=== PATIENT | female | born 1960 | race African-American/Black ===

== ENCOUNTER 2019-11-01 14:58 | Emergency (ER) | payer BC ==
[2019-11-01] MEDS ORDERED: LISINOPRIL 10 MG TABLET PO ONE (17:03)
[2019-11-01] MEDS ORDERED: HYDROCHLOROTHIAZIDE 12.5 MG TABLET PO ONE (17:04)
[2019-11-01] MEDS ORDERED: NIFEDIPINE 30 MG TAB.ER.24 PO ONE (17:05)
--- NOTE | 2019-11-01 17:05 | ER Document Report ---
ED Blood Pressure Problem - General Chief Complaint: hypertension Stated Complaint: BLOOD PRESSURE CONCERNS Time Seen by Provider: 11/01/19 16:58 Primary Care Provider: [facility] [Provider Group] - Follow up as needed MARIE LAYNE MD [ACTIVE STAFF] - Follow up as needed STEPHANIE BRITTON MD [ACTIVE STAFF] - Follow up as needed ALONDRA PARTIDA MD [ACTIVE STAFF] - Follow up as needed Mode of Arrival: Ambulatory Information source: Patient Notes: Patient states she was to have an outpatient procedure for evaluation of uterine fibroids but whenever she presented her blood pressure was up. Patient states she does have hypertension and was started on Procardia although she did not take it today. Patient states that she only just recently got started on the medication over the past week and has not been taking it daily. Patient states that she has had some blurred vision but she does not have her glasses with her here today. Patient denies any headache, chest pain shortness of breath or urinary symptoms. 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 - HPI Patient complains to provider of: High blood pressure Onset: This afternoon Onset/Duration: Persistent Quality of pain: No pain Problem is: Chronic problem Associated symptoms: Visual changes - Possible, patient states that she does wear glasses and does not have them with her. denies: Lightheaded, Nausea Similar symptoms previously: No Recently seen / treated by doctor: Yes - Related Data Allergies/Adverse Reactions: No Known Allergies Allergy (Unverified 11/01/19 16:44) Past Medical History - General Information source: Patient - Social History Smoking Status: Never Smoker Chew tobacco use (# tins/day): No Frequency of alcohol use: None Drug Abuse: None Occupation: [employer] Lives with: Family Family History: Reviewed & Not Pertinent Patient has homicidal ideation: No - Past Medical History Cardiac Medical History: Reports: Hx Hypertension Renal/ Medical History: Reports: Other - Uterine fibroids Past Surgical History: Reports: Hx Orthopedic Surgery - left ankle surgery Review of Systems - Review of Systems Constitutional: No symptoms reported EENT: Blurred vision - May be due to not wearing her glasses per patient Cardiovascular: No symptoms reported. denies: Chest pain Respiratory: No symptoms reported. denies: Cough Gastrointestinal: No symptoms reported. denies: Abdominal pain, Vomiting Genitourinary: No symptoms reported Female Genitourinary: No symptoms reported Musculoskeletal: No symptoms reported. denies: Back pain Skin: No symptoms reported Hematologic/Lymphatic: No symptoms reported Neurological/Psychological: No symptoms reported. denies: Headaches Physical Exam - Vital signs Vitals: Temp Pulse Resp BP Pulse Ox 98.0 F 78 16 184/109 H 100 11/01/19 15:18 11/01/19 15:18 11/01/19 15:18 11/01/19 15:18 11/01/19 15:18 - General General appearance: Appears well, Alert In distress: None - HEENT Head: Normocephalic, Atraumatic Eyes: Normal Conjunctiva: Normal Extraocular movements intact: Yes Pupils: PERRL Fundascopic: Normal. No: Retinal detachment, Retinal hemorrhage Nasal: Normal Mouth/Lips: Normal Pharynx: Normal Neck: Normal - Respiratory Respiratory status: No respiratory distress Chest status: Nontender Breath sounds: Normal. No: Rales, Rhonchi, Stridor, Wheezing Chest palpation: Normal - Cardiovascular Rhythm: Regular Heart sounds: S1 appreciated, S2 appreciated - Abdominal Inspection: Normal - Back Back: Normal, Nontender - Extremities General upper extremity: Normal inspection, Normal ROM General lower extremity: Normal inspection, Normal ROM - Neurological Neuro grossly intact: Yes Cognition: Normal Arvin Coma Scale Eye Opening: Spontaneous Arvin Coma Scale Verbal: Oriented Arvin Coma Scale Motor: Obeys Commands Arvin Coma Scale Total: 15 - Psychological Associated symptoms: Normal affect, Normal mood - Skin Skin Temperature: Warm Skin Moisture: Dry Skin Color: Normal Course - Re-evaluation Re-evalutation: 11/01/19 17:05 Nurse called the pharmacy who feels patient's medication states that she was prescribed Procardia 30 mg XL. Will give patient a dose of her usual medication at this time. 11/01/19 19:00 Reports that vision has returned to normal. Patient denies any headache pain. 11/01/19 19:15 Patient's repeat blood pressure has trended to 168/104. Patient with asymptomatic hypertension at this time. CT reviewed, no cute findings. Patient's diagnostic evaluation otherwise without any acute abnormalities. Will encourage patient to remain compliant with her antihypertensive medication and to follow-up with a primary doctor for further evaluation. - Vital Signs Vital signs: Temp Pulse Resp BP Pulse Ox 98.0 F 67 14 161/86 H 99 11/01/19 19:29 11/01/19 19:29 11/01/19 19:29 11/01/19 19:29 11/01/19 19:29 - Laboratory Result Diagrams: 11/01/19 17:26 11/01/19 17:26 Laboratory results interpreted by me: 11/01/19 17:26 RDW 15.0 H Labs- All tests 24 hr 11/01/19 11/01/19 17:26 17:26 WBC 6.4 RBC 4.57 Hgb 13.3 Hct 39.8 MCV 87 MCH 29.2 MCHC 33.5 RDW 15.0 H Plt Count 296 Lymph % (Auto) 21.0 Morgan % (Auto) 6.5 Eos % (Auto) 1.7 Baso % (Auto) 1.1 Absolute Neuts (auto) 4.5 Absolute Lymphs (auto) 1.4 Absolute Monos (auto) 0.4 Absolute Eos (auto) 0.1 Absolute Basos (auto) 0.1 Seg Neutrophils % 69.7 Sodium 142.0 Potassium 3.9 Chloride 106 Carbon Dioxide 28 Anion Gap 8 BUN 13 Creatinine 0.80 Est GFR ( Amer) > 60 Est GFR (MDRD) Non-Af > 60 Glucose 79 Calcium 9.3 - Diagnostic Test Radiology reviewed: Reports reviewed - EKG Interpretation by Me EKG shows normal: Sinus rhythm Rate: Normal Rhythm: NSR Voltage: Consistent with LVH Additional EKG results interpreted by me: 11/01/19 18:37 Sinus rhythm with a rate of 68, QTc 400, no acute ischemic changes Discharge - Discharge Clinical Impression: Vision disturbance Hypertension Qualifiers: Hypertension type: unspecified Qualified Code(s): I10 - Essential (primary) hypertension Condition: Stable Disposition: HOME, SELF-CARE Instructions: High Blood Pressure, Requiring Treatment ([facility]) Additional Instructions: Return immediately for any new or worsening symptoms Followup with a primary care provider to establish care and manage her hypertension, call tomorrow to make a followup appointment Follow-up with your [facility] provider as directed 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
--- NOTE | 2019-11-01 17:45 | RADIOLOGY REPORT (SQ) ---
EXAM DESCRIPTION: CHEST SINGLE VIEW IMAGES COMPLETED DATE/TIME: 11/01/2019 5:18 pm REASON FOR STUDY: HTN COMPARISON: None. EXAM PARAMETERS: NUMBER OF VIEWS: One view. TECHNIQUE: Single frontal radiographic view of the chest acquired. RADIATION DOSE: NA LIMITATIONS: None. FINDINGS: LUNGS AND PLEURA: No opacities, masses or pneumothorax. No pleural effusion. MEDIASTINUM AND HILAR STRUCTURES: No masses. Contour normal. HEART AND VASCULAR STRUCTURES: Heart normal in size. Normal vasculature. BONES: No acute findings. HARDWARE: None in the chest. OTHER: No other significant finding. IMPRESSION: NO ACUTE RADIOGRAPHIC FINDING IN THE CHEST. TECHNICAL DOCUMENTATION: JOB ID: [id number] 2010 [employer]- All Rights Reserved Reading location - IP/workstation name: [email or web address]
--- NOTE | 2019-11-01 18:07 | RADIOLOGY REPORT (SQ) ---
EXAM DESCRIPTION: CT HEAD WITHOUT IMAGES COMPLETED DATE/TIME: 11/01/2019 5:51 pm REASON FOR STUDY: HTN, blurred vision COMPARISON: None. TECHNIQUE: Axial images acquired through the brain without intravenous contrast. Images reviewed wi th bone, brain and subdural windows. Additional sagittal and coronal reconstructions were generated. Images stored on PACS. All CT scanners at this facility use dose modulation, iterative reconstruction, and/or weight based d osing when appropriate to reduce radiation dose to as low as reasonably achievable (ALARA). [facility]: Dose Right [facility]: CareDose [facility]: Dose Right [facility]: Teradose 4D [facility]: Smart [employer] RADIATION DOSE: CT Rad equipment meets quality standard of care and radiation dose reduction techniq ues were employed. CTDIvol: 53.2 mGy. DLP: 1124 mGy-cm. mGy. LIMITATIONS: None. FINDINGS: VENTRICLES: Normal size and contour. CEREBRUM: No masses. No hemorrhage. No midline shift. No evidence for acute infarction. Normal gra y/white matter differentiation. No areas of low density in the white matter. CEREBELLUM: No masses. No hemorrhage. No alteration of density. No evidence for acute infarction. EXTRAAXIAL SPACES: No fluid collections. No masses. ORBITS AND GLOBE: No intra- or extraconal masses. Normal contour of globe without masses. CALVARIUM: No fracture. PARANASAL SINUSES: No fluid or mucosal thickening. SOFT TISSUES: No mass or hematoma. OTHER: No other significant finding. IMPRESSION: NORMAL BRAIN CT WITHOUT CONTRAST. EVIDENCE OF ACUTE STROKE: NO. COMMENT: Quality ID # [id number]: Final reports with documentation of one or more dose reduction techniques (e.g., Automated exposure control, adjustment of the mA and/or kV according to patient size, use of iterative reconstruction technique) TECHNICAL DOCUMENTATION: JOB ID: [id number] 2010 [employer]- All Rights Reserved Reading location - IP/workstation name: [email or web address]
[2019-11-01 18:13] LABS: ABSOLUTE BASOPHILS # (AUTO) 0.1 10^3/uL (0.0-0.2); ABSOLUTE EOSINOPHILS # (AUTO) 0.1 10^3/uL (0.0-0.6); ABSOLUTE LYMPHOCYTES (AUTO) 1.4 10^3/uL (0.5-4.7); ABSOLUTE MONOCYTES (AUTO) 0.4 10^3/uL (0.1-1.4); ABSOLUTE NEUT (AUTO) 4.5 10^3/uL (1.7-8.2); BASOPHILS % (AUTO) 1.1 % (0-2); EOSINOPHILS % (AUTO) 1.7 % (0-6); HEMATOCRIT 39.8 % (36.0-47.0); HEMOGLOBIN 13.3 g/dL (12.0-15.5); MEAN CORPUSCULAR HEMOGLOBIN 29.2 pg (27.0-33.4); MEAN CORPUSCULAR HGB CONC 33.5 g/dL (32.0-36.0); MEAN CORPUSCULAR VOLUME 87 fl (80-97); MONOCYTES % (AUTO) 6.5 % (3-13); PLATELET COUNT 296 10^3/uL (150-450); RED BLOOD COUNT 4.57 10^6/uL (3.72-5.28); SEGMENTED NEUTROPHILS % (AUTO) 69.7 % (42-78); TOTAL CELLS COUNTED % (AUTO) 100 %; WHITE BLOOD COUNT 6.4 10^3/uL (4.0-10.5)
[2019-11-01 18:48] LABS: ANION GAP 8 (5-19); BLOOD UREA NITROGEN 13 mg/dL (7-20); CALCIUM 9.3 mg/dL (8.4-10.2); CARBON DIOXIDE 28 mmol/L (22-30); CHLORIDE 106 mmol/L (98-107); GLUCOSE 79 mg/dL (75-110); POTASSIUM 3.9 mmol/L (3.6-5.0)
[2019-11-01 19:30] VITALS: BP 161/86
--- NOTE | 2019-11-02 09:38 | EKG REPORT ---
SEVERITY:- BORDERLINE ECG - SINUS RHYTHM LVH BY VOLTAGE : Confirmed by: Florian Howell 02-Nov-2019 09:37:08
== END 2019-11-01 19:55 | disposition home or self-care (01) ==
LOC: ER 14:58
DX: H53.8 Other visual disturbances (principal); I10 Essential (primary) hypertension; Z79.899 Other long term (current) drug therapy
CPT/HCPCS: 36415; 70450; 71045; 80048; 85025; 93005; 93010; 99285